=== PATIENT | male | born 1970 | race Caucasian/White ===

== ENCOUNTER 2020-05-18 07:58 | Observation (INO) | payer OTHER ==
[~2020-05-18] VITALS: Ht 185.4 cm; Wt 102.1 kg
[~2020-05-18 07:58] MED LIST: ATENOLOL50 MG PO; FLUTICASONE50 MCG
--- NOTE | 2020-05-18 08:00 | NUR ---
PT AMBULATORY TO ROOM # 15 FOR BEDSIDE TRIAGE.
--- NOTE | 2020-05-18 09:10 | NUR ---
SWABS AND EKG PERFORMED. PT TOLERATED WELL. ADVISED OF WAIT TIME FOR RESULTS. VERALIZED UNDERSTANDIGN. DENEIS ANY NEEDS. CALL LIGHT WITHIN REACH. BEDSIDE.
[2020-05-18 09:24] LABS: HEMATOCRIT 43.8 % (39.0-50.0); HEMOGLOBIN 14.2 g/dl (14.0-18.0); IMMATURE GRANULOCYTES 0.3 % (0.0-5.0); MEAN CELL VOLUME 89.2 fL CALC (80.0-100.0); MEAN CORPUSCULAR HGB 28.9 pG CALC (26.0-32.0); MEAN CORPUSCULAR HGB CONC 32.4 g/dL CAL (32.0-36.0); NEUT# 5.36 thou/uL (1.82-7.42); RED BLOOD COUNT 4.91 mill/uL (4.70-6.10); RED CELL DISTRI WIDTH 12.5 % (11.5-15.5)
[2020-05-18 09:28] LABS: URINE BILIRUBIN - DIPSTICK NEGATIVE (NEGATIVE); URINE BLOOD DIPSTICK NEGATIVE (NEGATIVE); URINE COLOR YELLOW; URINE GLUCOSE - DIPSTICK NEGATIVE (NEGATIVE); URINE KETONE NEGATIVE (NEGATIVE); URINE LEUK ESTERASE NEGATIVE (NEGATIVE); URINE NITRITE - DIPSTICK NEGATIVE (Negative); URINE PH 6.5 (4.5-8.0); URINE PROTEIN - DIPSTICK NEGATIVE (NEG-TRACE); URINE SPECIFIC GRAVITY <=1.005; URINE UROBILINOGEN - DIPSTICK 0.2 E.U./dL (0.2)
[2020-05-18 09:45] LABS: ALKALINE PHOSPHATASE 51 u/l (38-126); ANION GAP 12 (6-22 (CALC)); BILIRUBIN, TOTAL 0.6 mg/dL (0.0-1.4); BUN 11 mg/dL (9-20); BUN/CREATININE RATIO 11 (12-20 (CALC)); CARBON DIOXIDE 32 mmol/l (22-30); CHLORIDE 103 mmol/l (95-108); GFR > 60 ML/MIN (>=60 (CALC)); GFR FOR AFR.AMER. > 60 ML/MIN (>=60 (CALC)); POTASSIUM 4.6 mmol/l (3.5-5.1); SGOT/AST 35 u/l (17-59); SODIUM 142 mmol/l (137-146)
--- NOTE | 2020-05-18 09:50 | NUR ---
# 20 IV INTIATED TO LAC WITH SECOND SET OF BLOOD CULTURES OBTAINED. TOLERATE WELL. IV ABX INTIATED PER MD ORDER. TOLERATING INFUSION WITHOUT DIFFICULTY.
[2020-05-18 09:57] LABS: MYOGLOBIN 59 ng/mL (0 - 121)
--- NOTE | 2020-05-18 10:28 | NUR ---
IV ROCEPHIN COMPLETED AT THIS TIME, IV SITE FREE FROM REDNESS/WARMTH/SWELLING. AZITHROMYCIN INITIATED TO LAC SITE. ADVISED OF WAIT TIME FOR RESULTS. VERBALIZES NO NEEDS AT THIS TIME. CALL LIGHT WITHIN REACH. BEDSIDE.
--- NOTE | 2020-05-18 11:05 | NUR ---
IV ABX INFUSING WITH NO DIFFICULTY. PT COUGHED UP BLOOD TINGED SPUTUM, NOTIFIED.
--- NOTE | 2020-05-18 11:45 | NUR ---
DR RICKS IN ROOM SPEAKING WITH PT REGARDING ADMISSION.
--- NOTE | 2020-05-18 12:00 | NUR ---
PT RESTING ON STRETCHER IN NAD. RESP EVEN AN UNLABORED. SKIN WARM AND DRY. ADVISED OF CONT WAIT TIME FOR RESULTS. DENIES ANY NEEDS. CALL LIGHT WITHIN REACH. BEDSIDE.
--- NOTE | 2020-05-18 13:00 | NUR ---
PT RESTING ON STRETCHER IN NO APPARENT DISTRESS. REESP EVEN AND UNLABORED. SKIN WARM AND DRY. ADVISED OF CONT WAIT TIME FOR RESULTS. VERALIZED UNDERSTANDIGN. DENIES ANY NEEDS.
--- NOTE | 2020-05-18 13:46 | NUR ---
REPORT GIVEN TO EZ WATSON.
--- NOTE | 2020-05-18 14:00 | NUR ---
Admission Note Report Given to: WALTER KUNZ Transported by: Wheelchair X Stretcher Transported with: X Nurse Transporter X Patent IV O2 X Ecommerce Manager Location: X ICU MS2 PT TRANSPORTED TO ICU 3 OVERFLOW ADMIT WITH BARREL PLATER IN PLACE IN STABLE CONDITION WITH BAG OF BELONINGS (JACKET AND SHIRT)
--- NOTE | 2020-05-18 14:05 | NUR ---
PT ARRIVED TO ICU UNIT ROOM 3 VIA STRETCHER WITH ER STAFF; ALERT AND ORIENTED X 4. AMBULATED TO BED AND AROUND ROOM INDEPENDENTLY WITH STEADY GAIT. DENIES PAIN. RESPIRATIONS EVEN AND UNLABORED ON ROOM AIR. PT CURRENTLY DENIES ANY SOB OR COUGH. LUNGS ARE DIMINISHED. VSS. AFEBRILE. CONNECTED TO ATTACHMENTS. NSR HEART RATE 72 ON STUDIO CAMERA OPERATOR. LUNGS ARE DIMINSHED; HR REGULAR. ORIENTED TO ROOM AND CALL LIGHT SYSTEM. PLAN OF CARE DISCUSSED. PT ENCOURAGED TO VERBALIZE CONCERNS. STATES UNDERSTANDING. SAFETY MEASURES IN PLACE. CALL LIGHT WITHIN REACH.
[2020-05-18 14:15] VITALS: BP 146/82
--- NOTE | 2020-05-18 16:53 | NUR ---
ANDRES MCCRACKEN AT BEDSIDE FOR EVAL.
[2020-05-18 17:00] VITALS: BP 155/78
--- NOTE | 2020-05-18 17:42 | NUR ---
SITTING UP EATING DINNER. VSS. VOIDING CLEAR YELLOW URINE IN URINAL. REPORTS LOSS OF TASTE.
[2020-05-18 19:45] VITALS: BP 116/76
--- NOTE | 2020-05-18 19:45 | NUR ---
PATIENT UP IN ROOM. RESP EVEN AND UNLABORED. RA O2 SAT 96-98% BREATH SOUNDS DIMINISHED, CLEAR THROUGHOUT. SALINE LOCK IN LAC,S ITE BENIGN. JAVA SWING DEVELOPER SHOWS SR. PATIENT VOIDS CLEAR YELLOW URINE. DISCUSSED PLAN OF CARE. DENIES NEEDS AT THIS TIME. CALL WHALEY IN REACH.
--- NOTE | 2020-05-18 22:15 | NUR ---
RESTING IN BED WATCHING TV. NO COMPLAINTS VOICED. RESP NON-LABORED.
[2020-05-19 00:05] VITALS: BP 108/64
--- NOTE | 2020-05-19 00:05 | NUR ---
AWAKE ON ROUNDS. VSS. AFEBRILE. NO SOB. RESP EVEN AND UNLABORED.
--- NOTE | 2020-05-19 04:15 | NUR ---
O2 SATS MAINTAINED 92-97% DURING THE NIGHT ON RA.
[2020-05-19 05:40] LABS: HEMATOCRIT 43.4 % (39.0-50.0); HEMOGLOBIN 14.2 g/dl (14.0-18.0); IMMATURE GRANULOCYTES 0.9 % (0.0-5.0); MEAN CELL VOLUME 88.8 fL CALC (80.0-100.0); MEAN CORPUSCULAR HGB CONC 32.7 g/dL CAL (32.0-36.0); NEUT# 4.62 thou/uL (1.82-7.42); RED BLOOD COUNT 4.89 mill/uL (4.70-6.10); RED CELL DISTRI WIDTH 12.7 % (11.5-15.5)
[2020-05-19 05:54] LABS: ALBUMIN 3.9 g/dL (3.2-5.0); ALKALINE PHOSPHATASE 52 u/l (38-126); ANION GAP 13 (6-22 (CALC)); BILIRUBIN, TOTAL 0.5 mg/dL (0.0-1.4); BUN 11 mg/dL (9-20); BUN/CREATININE RATIO 13 (12-20 (CALC)); C-REACTIVE PROTEIN 3.3 mg/dL (0-0.9); CARBON DIOXIDE 26 mmol/l (22-30); CHLORIDE 106 mmol/l (95-108); CREATININE 0.9 mg/dL (0.7-1.3); GFR > 60 ML/MIN (>=60 (CALC)); GFR FOR AFR.AMER. > 60 ML/MIN (>=60 (CALC)); SGOT/AST 28 u/l (17-59); SODIUM 140 mmol/l (137-146)
--- NOTE | 2020-05-19 06:00 | NUR ---
NO CHANGES TO REPORT. SB-SR ON MONITOR.
--- NOTE | 2020-05-19 07:31 | NUR ---
REPORT RECEIVED FROM CHRISTEN ROOT. PT SITTING UP IN BED ALERT AND ORIENTED; DENIES PAIN, SOB, NAUSEA, AND COUGH. LUNGS ARE DIMINISHED. RESPIRATIONS EVEN AND UNLABORED ON ROOM AIR. UP TO BATHROOM FOR LARGE BOWEL MOVEMENT. PT SMILING AND LAUGHING; STATES HE IS READY TO GO HOME. DENIED ANY SOB THROUGHOUT THE NIGHT. ONLY DISCOMFORT FROM HOSPITAL BED. POC REVIEWED. PT ENCOURAGED TO VERBALIZE CONCERNS. STATES UNDERSTANDING. SAFETY MEASURES IN PLACE. CALL LIGHT WITHIN REACH.
[2020-05-19 07:42] VITALS: BP 131/69
--- NOTE | 2020-05-19 08:15 | NUR ---
DR. NGUYỄN AND RICKEY BRADY AT BEDSIDE FOR EVAL. ROCEPHIN INFUSING AT THIS TIME.
[2020-05-19] MEDS ORDERED: ZITHROMAX250 MG PO (08:18)
--- NOTE | 2020-05-19 09:17 | NUR ---
ZITHROMAX INFUSING AND PT INFORMED OF DISCHARGE AFTER ABT.
--- NOTE | 2020-05-19 09:43 | NUR ---
IV site discontinued, cath intact. No edema , no redness, voices no discomfort. PCR SWAB RESULT IS POSITIVE; PT INFORMED.
--- NOTE | 2020-05-19 09:57 | NUR ---
Discharge instructions given. Patient verbalizes understanding of same. Discharged in stable condition via Wheelchair to Home with spouse. All belongings sent with pt.
== END 2020-05-19 09:57 | disposition home or self-care (01) | DRG 177 ==
LOC: ED 07:58 → ED-I 12:40 → ED 12:52 → ICU 12:53
PROVIDERS: Emergency Medicine; Nurse Practitioner; ADMIT Internal Medicine; ATTEND Internal Medicine
DX: U07.1 COVID-19 (principal); J12.89 Other viral pneumonia
CPT/HCPCS: J1650; Q9967

== ENCOUNTER 2020-06-01 07:24 | Emergency (ER) | payer OTHER ==
[~2020-06-01] VITALS: Ht 185.4 cm; Wt 100.0 kg
[~2020-06-01 07:24] MED LIST changes: +ZITHROMAX250 MG PO
[2020-06-01 09:02] LABS: HEMATOCRIT 41.6 % (39.0-50.0); HEMOGLOBIN 13.7 g/dl (14.0-18.0); IMMATURE GRANULOCYTES 0.3 % (0.0-5.0); MEAN CELL VOLUME 90.2 fL CALC (80.0-100.0); MEAN CORPUSCULAR HGB 29.7 pG CALC (26.0-32.0); MEAN CORPUSCULAR HGB CONC 32.9 g/dL CAL (32.0-36.0); NEUT# 5.36 thou/uL (1.82-7.42); RED BLOOD COUNT 4.61 mill/uL (4.70-6.10); RED CELL DISTRI WIDTH 12.9 % (11.5-15.5)
[2020-06-01 09:28] LABS: ALBUMIN 4.4 g/dL (3.2-5.0); ALKALINE PHOSPHATASE 55 u/l (38-126); ANION GAP 12 (6-22 (CALC)); BUN 12 mg/dL (9-20); BUN/CREATININE RATIO 11 (12-20 (CALC)); CARBON DIOXIDE 31 mmol/l (22-30); CHLORIDE 103 mmol/l (95-108); CREATININE 1.1 mg/dL (0.7-1.3); GFR > 60 ML/MIN (>=60 (CALC)); GFR FOR AFR.AMER. > 60 ML/MIN (>=60 (CALC)); POTASSIUM 4.8 mmol/l (3.5-5.1); SGOT/AST 21 u/l (17-59); SODIUM 140 mmol/l (137-146); TOTAL PROTEIN 7.3 g/dL (6.3-8.2)
[2020-06-01 09:29] LABS: BILIRUBIN, TOTAL 0.8 mg/dL (0.0-1.4)
[2020-06-01 12:00] VITALS: BP 151/85
== END 2020-06-01 12:18 | disposition home or self-care (01) | DRG 204 ==
LOC: ED 07:24
PROVIDERS: Family Medicine
DX: R06.02 Shortness of breath (principal); Z86.16 Personal history of COVID-19
CPT/HCPCS: Q9967